=== PATIENT | female | born 1975 | race American Indian/Alaskan Native ===

== ENCOUNTER 2018-06-04 13:50 | Emergency (ER) | payer BC ==
[2018-06-04 14:11] VITALS: BMI 31.1
--- NOTE | 2018-06-04 14:38 | ED PDOC ---
Arrival/HPI <BrandonEdward - Last Filed: 06/04/18 16:53> - General Historian: Patient <EdithThierno Janiya - Last Filed: 06/05/18 00:19> - General Chief Complaint: Back Pain Time Seen by Provider: 06/04/18 14:14 - History of Present Illness Narrative History of Present Illness (Text): 06/04/18 14:34 43yo female with no pmhx who present with complaint of intermittent lower back pain x one month. Describes pain as sharp and shooting. states pain is usually worse with flexion. She states she was taking Advil with relieve, until recently. Also reports intermittent shooting pain to her chest. states the last time was two days ago. she denies SOB, diaphoresis, fever, chills, cough, focal weakness, urinary/fecal incontinence, ripping/tearing upper back pain, dizziness , nausea, vomiting, any other complaint. (Thierno Sharma) Past Medical History - Provider Review Nursing Documentation Reviewed: Yes <BrandonEdward - Last Filed: 06/04/18 16:53> - Provider Review Nursing Documentation Reviewed: Yes - Cardiac Hx Cardiac Disorders: Yes Hx Hypertension: Yes - Musculoskeletal/Rheumatological Hx Falls: No - Gastrointestinal Other/Comment: Gastric Sleeve in December 2013 - Psychiatric Hx Substance Use: No - Surgical History Hx Section: Yes Other/Comment: Gastric sleeve sx - 12/2013 - Anesthesia Hx Anesthesia: Yes Hx Anesthesia Reactions: No Hx Malignant Hyperthermia: No - Suicidal Assessment Feels Threatened In Home Enviroment: No <Thierno Sharma Janiya - Last Filed: 06/05/18 00:19> Family/Social History - Physician Review Nursing Documentation Reviewed: Yes <BrandonEdward - Last Filed: 06/04/18 16:53> - Physician Review Nursing Documentation Reviewed: Yes Family/Social History: Unknown Family HX Smoking Status: Never Smoked Hx Alcohol Use: No Hx Substance Use: No <Thierno Sharma Janiya - Last Filed: 06/05/18 00:19> Allergies/Home Meds <BrandonEdward - Last Filed: 06/04/18 16:53> <Thierno Sharma Janiya - Last Filed: 06/05/18 00:19> Allergies/Adverse Reactions: Allergies No Known Allergies Allergy (Unverified 06/04/18 14:11) Home Medications: Home Meds Medication Instructions Recorded Confirmed amLODIPine [Norvasc] 5 mg PO DAILY 06/04/18 06/04/18 Review of Systems - Physician Review All systems were reviewed & negative as marked: Yes <Edward Taylor - Last Filed: 06/04/18 16:53> - Physician Review All systems were reviewed & negative as marked: Yes - Review of Systems Constitutional: Normal Eyes: Normal ENT: Normal Respiratory: Normal Cardiovascular: Chest Pain Gastrointestinal: Normal Genitourinary Female: Normal Musculoskeletal: Normal, Back Pain Skin: Normal Neurological: Normal Endocrine: Normal Hemo/Lymphatic: Normal Psychiatric: Normal <DirjuveECS TuningHappiness A - Last Filed: 06/05/18 00:19> Physical Exam Vital Signs Reviewed: Yes Temperature: Afebrile Blood Pressure: Normal Pulse: Regular Respiratory Rate: Normal Appearance: Positive for: Well-Appearing, Non-Toxic, Comfortable Pain Distress: None Mental Status: Positive for: Alert and Oriented X 3 - Systems Exam Head: Present: Atraumatic, Normocephalic Pupils: Present: PERRL Extroacular Muscles: Present: EOMI Conjunctiva: Present: Normal Mouth: Present: Moist Mucous Membranes Neck: Present: Normal Range of Motion Respiratory/Chest: Present: Clear to Auscultation, Good Air Exchange. No: Respiratory Distress, Accessory Muscle Use Cardiovascular: Present: Regular Rate and Rhythm, Normal S1, S2. No: Murmurs Abdomen: No: Tenderness, Distention, Peritoneal Signs Back: Present: Midline Tenderness. No: Paraspinal Tenderness, Pain with Leg Raise Upper Extremity: Present: Normal Inspection. No: Cyanosis, Edema Lower Extremity: Present: Normal Inspection. No: Edema Neurological: Present: GCS=15, CN II-XII Intact, Speech Normal Skin: Present: Warm, Dry, Normal Color. No: Rashes Psychiatric: Present: Alert, Oriented x 3, Normal Insight, Normal Concentration <DiruECS [employer]Happ[employer] A - Last Filed: 06/05/18 00:19> Vital Signs Temp Pulse Resp BP Pulse Ox 06/04/18 17:08 98.3 F 74 17 99 06/04/18 17:01 75 17 135/87 99 06/04/18 16:15 78 17 137/82 99 06/04/18 14:02 98.1 F 81 18 141/96 H 98 Medical Decision Making <Edward Taylor - Last Filed: 06/04/18 16:53> <Thierno Sharma - Last Filed: 06/05/18 00:19> ED Course and Treatment: Impression: 43 year old female presents to the Emergency department for lower back pain for a while, denies trauma. Plan: -- Reassess and disposition Prior Visits: Notes and results from previous visits were reviewed. Patient was last seen in the Emergency department on . Progress Notes: --Lumbar Spine X-Ray reviewed by radiologist, shows: Report Date : 06/04/2018 16:33:43 Creator : Jeremy Raymundo MD Dictator : Jeremy Raymundo MD Decorating [employer] Assembly Supervisor : Jeremy Raymundo MD FINDINGS: BONES: Normal alignment. No listhesis. No fracture. Lumbarization of the 1st sacral element normal variant. DISC SPACES: Unremarkable. OTHER FINDINGS: Constipation without fecal impaction or obstruction. IMPRESSION: No significant or acute findings to account for/ related to the clinical presentation. --Chest X-Ray reviewed by radiologist, shows: Report Date : 06/04/2018 16:32:51 Creator : Jeremy Raymundo MD Dictator : Jeremy Raymundo MD [employer]orating [employer] Assembly Supervisor : Jeremy Raymundo MD FINDINGS: LUNGS: No active pulmonary disease. PLEURA: No significant pleural effusion identified. No pneumothorax apparent. CARDIOVASCULAR: No radiographic findings to suggest acute or significant cardiovascular disease. OSSEOUS STRUCTURES: No significant abnormalities. VISUALIZED UPPER ABDOMEN: Normal. OTHER FINDINGS: None. IMPRESSION: No active disease. (Edward Taylor) 06/05/18 00:18 PT was ambulatory and neurological intact in ED. She was DC home with Naprosyn and flexeril rx (Thierno Sharma) - RAD Interpretation Radiology Orders: 06/04/18 14:28 LS SPINE WITH OBL > 18 YRS OLD [RAD] Stat 06/04/18 14:30 CHEST TWO VIEWS (PA/LAT) [RAD] Stat - Medication Orders Current Medication Orders: Discontinued Medications Cyclobenzaprine HCl (Flexeril) 10 mg PO STAT STA Stop: 06/04/18 16:36 Last Admin: 06/04/18 16:53 Dose: Ketorolac Tromethamine (Toradol) 60 mg IM STAT STA Stop: 06/04/18 16:36 Last Admin: 06/04/18 16:52 Dose: 60 mg MAR Pain Assessment Document 06/04/18 16:52 SF (Rec: 06/04/18 16:52 SF [id number]) Pain Reassessment Is this a pain reassessment? Yes Sleep Is patient sleeping during reassessment? No Presence of Pain Presence of Pain Yes IM Administration Charges Document 06/04/18 16:52 SF (Rec: 06/04/18 16:52 SF [id number]) Injection Site MAR Injection Site Left Deltoid Charges for Administration # of IM Administrations 1 - Scribe Statement The provider has reviewed the documentation as recorded by the Scribe <Edward Taylor - Last Filed: 06/04/18 16:53> <Thierno Sharma - Last Filed: 06/05/18 00:19> - Scribe Statement Britta Orellana All medical record entries made by the Scribe were at my direction and personally dictated by me. I have reviewed the chart and agree that the record accurately reflects my personal performance of the history, physical exam, medical decision making, and the department course for this patient. I have also personally directed, reviewed, and agree with the discharge instructions and disposition. (Edward Taylor) Disposition/Present on Arrival <Edward Taylor - Last Filed: 06/04/18 16:53> - Present on Arrival Any Indicators Present on Arrival: No History of DVT/PE: No History of Uncontrolled Diabetes: No Urinary Catheter: No History of Decub. Ulcer: No History Surgical Site Infection Following: None - Disposition Have Diagnosis and Disposition been Completed?: Yes Disposition Time: 16:40 Patient Plan: Discharge <Thierno Sharma - Last Filed: 06/05/18 00:19> - Disposition Diagnosis: Back pain, Chest pain Disposition: HOME/ ROUTINE Condition: STABLE Discharge Instructions (ExitCare): Low Back Pain in Adults, Chest Pain (ED) Additional Instructions: Follow up with your doctor/Orthopedist Return to ED for any new or worsening symptoms Prescriptions: Cyclobenzaprine [Cyclobenzaprine HCl] 10 mg PO TID #12 tab Naproxen [Naprosyn] 500 mg PO BID #20 tab Referrals: Jose M Webster DO [Staff Provider] - Follow up with primary Forms: [facility] ([place]), WORK NOTE
--- NOTE | 2018-06-04 16:34 | RAD ---
Date of service: 06/04/2018 HISTORY: Chest pain. COMPARISON: No prior. TECHNIQUE: Chest PA and lateral FINDINGS: LUNGS: No active pulmonary disease. PLEURA: No significant pleural effusion identified. No pneumothorax apparent. CARDIOVASCULAR: No radiographic findings to suggest acute or significant cardiovascular disease. OSSEOUS STRUCTURES: No significant abnormalities. VISUALIZED UPPER ABDOMEN: Normal. OTHER FINDINGS: None. IMPRESSION: No active disease.
--- NOTE | 2018-06-04 16:35 | RAD ---
Date of service: 06/04/2018 PROCEDURE: Radiographs of the Lumbar Spine. HISTORY: back pain COMPARISON: No prior. FINDINGS: BONES: Normal alignment. No listhesis. No fracture. Lumbarization of the 1st sacral element normal variant. DISC SPACES: Unremarkable. OTHER FINDINGS: Constipation without fecal impaction or obstruction. IMPRESSION: No significant or acute findings to account for/ related to the clinical presentation.
[2018-06-04 17:02] VITALS: BP 135/87; RESP 17; O2SAT 99
[2018-06-04 17:09] VITALS: PULSE 74; TEMP 98.3
--- NOTE | 2018-06-04 19:18 | CARD ---
APPROVED REPORT Date of service: 06/04/2018 EKG Measurement Heart [id number] <Conclusion> Normal sinus rhythm Normal ECG
== END 2018-06-04 17:08 | disposition home or self-care (01) ==
LOC: ED 13:50
DX: M54.5 Low back pain (principal); R07.9 Chest pain, unspecified; I10 Essential (primary) hypertension
CPT/HCPCS: 71046; 72110; 93005; 96372; 99285; J1885